=== PATIENT | female | born 1975 | race Caucasian/White ===

== ENCOUNTER 2017-01-12 09:26 | Emergency (ER) | payer OTHER ==
[2017-01-12] MEDS ORDERED: NO HOME MEDICATION XX (09:47)
[2017-01-12] MEDS ORDERED: NORCO 5-325 TA1 EACH PO (11:37)
== END 2017-01-12 12:21 ==
LOC: EDMED 09:26
DX: M54.9 Dorsalgia, unspecified (principal); W10.9XXA Fall (on) (from) unspecified stairs and steps, initial encounter
CPT/HCPCS: J1170